=== PATIENT | male | born 1950 | race African-American/Black ===

== ENCOUNTER 2017-08-19 04:46 | Inpatient (IN) | payer MEDICARE, MEDICAID ==
[~2017-08-19] VITALS: Ht 167.6 cm; Wt 71.3 kg
[~2017-08-19 04:46] MED LIST: HALO100A IM; HALO5TAB23 PO
[2017-08-19] MEDS ORDERED: LORazepam 2 MG/ML VIAL IM ONE (05:00)
[2017-08-19] MEDS ORDERED: HALOPERIDOL LACTATE 5 MG/ML VIAL IM ONE (05:00)
[2017-08-19] MEDS ORDERED: DiphenhydrAMINE HCL 50 MG/ML VIAL IM ONE (05:00)
[2017-08-19 06:23] LABS: BASOPHILS # (AUTO) 0.04 K/uL (0.00-0.20); BASOPHILS % (AUTO) 1.1 % (0.0-2.0); EOSINOPHILS # (AUTO) 0.13 K/uL (0.00-0.70); EOSINOPHILS % (AUTO) 3.61 % (1.0-6.0); HEMATOCRIT 36.1 % (41-53); HEMOGLOBIN 12.2 g/dL (13.5-17.5); LYMPHOCYTES # (AUTO) 0.9 K/uL (1.0-4.8); LYMPHOCYTES % (AUTO) 24.8 % (22.0-44.0); MEAN CORPUSCULAR HEMOGLOBIN 31.3 pg (26.0-34.0); MEAN CORPUSCULAR HGB CONC 33.7 G/dL (31.0-37.0); MEAN CORPUSCULAR VOLUME 93 fL (80-100); MONOCYTES # (AUTO) 0.2 K/uL (0.1-1.0); MONOCYTES % (AUTO) 6.6 % (2.0-9.0); NEUTROPHILS # (AUTO) 2.3 K/uL (1.8-7.7); NEUTROPHILS % (AUTO) 63.9 % (40.0-70.0); PLATELET COUNT (AUTO) 263 K/uL (150-450); RED BLOOD CELL COUNT(AUTO) 3.89 MIL/uL (4.50-5.90); RED CELL DISTRIBUTION WIDTH 13.6 % (11.5-14.5)
[2017-08-19 06:35] LABS: ANION GAP 5 mmol/L (8-16); CALCIUM, TOTAL 8.2 mg/dL (8.8-10.5); CARBON DIOXIDE 33 mmol/L (22-29); CHLORIDE 102 mmol/L (98-107); CREATININE 0.77 mg/dL (0.60-1.30); GLOMERULAR FILTR. RATE CALC > 60 mL/min (>60); GLUCOSE,RANDOM 93 mg/dL (70-110); POTASSIUM 3.2 mmol/L (3.5-5.1); SODIUM SERUM 140 mmol/L (136-145); UREA NITROGEN, BLOOD 10 mg/dL (7-18)
[2017-08-19 06:41] LABS: ALANINE AMINOTRANSFERASE 31 U/L (12-78); ALBUMIN 3.1 g/dL (3.4-5.0); ALKALINE PHOSPHATASE 68 U/L (46-116); ASPARTATE AMINOTRANSFERASE 23 U/L (15-37); BILIRUBIN,TOTAL 0.3 mg/dL (0.1-1.0); TOTAL PROTEIN, SERUM 6.6 g/dL (6.4-8.2)
[2017-08-19 23:47] LABS: AMPHET/METH SCREEN,URINE NEGATIVE (NEGATIVE); BARBITURATE SCREEN, URINE NEGATIVE (NEGATIVE); BENZODIAZEPINES SCREEN,URINE NEGATIVE (NEGATIVE); CANNABINOID SCREEN,URINE NEGATIVE (NEGATIVE); COCAINE SCREEN,URINE NEGATIVE (NEGATIVE); METHADONE SCREEN, URINE NEGATIVE (NEGATIVE); OPIATE SCREEN,URINE NEGATIVE (NEGATIVE); PHENCYCLIDINE SCREEN,URINE NEGATIVE (NEGATIVE)
[2017-08-20 09:48] LABS: CHOL/HDL RATIO 2.2 (4.2-7.3)
[2017-08-20] MEDS ORDERED: DiphenhydrAMINE HCL 50 MG/ML VIAL ONE (16:47)
[2017-08-20] MEDS ORDERED: LORazepam 2 MG/ML VIAL ONE (16:47)
[2017-08-20] MEDS ORDERED: HALOPERIDOL LACTATE 5 MG/ML VIAL ONE (16:47)
[2017-08-20 16:55] VITALS: BP 142/102
[2017-08-20] MEDS ORDERED: LORazepam 2 MG/ML VIAL IM ONE (17:00)
[2017-08-20] MEDS ORDERED: DiphenhydrAMINE HCL 50 MG/ML VIAL IM ONE (17:00)
[2017-08-20] MEDS ORDERED: HALOPERIDOL LACTATE 5 MG/ML VIAL IM ONE (17:00)
[2017-08-20 17:25] VITALS: BP 128/78
[2017-08-20] MEDS ORDERED: PNEUMOCOCCAL VACCINE POLYVALENT 0.5 ML VIAL [PPSV23] IM ONE (18:00)
[2017-08-20] MEDS ORDERED: INFLUENZA VIRUS VACCINE QVS 2017-18 (3YR+)/PF 60 MCG/0.5 ML SYRINGE IM ONE (18:00)
[2017-08-20] MEDS ORDERED: POTASSIUM CHLORIDE 20 MEQ ER TABLET PO ONE (19:45)
[2017-08-20 20:42] VITALS: BP 142/102
[2017-08-21 06:39] VITALS: BP 128/64
[2017-08-21 08:16] VITALS: BP 132/70
[2017-08-21] MEDS: AmLODIPine BESYLATE 2.5 MG TABLET PO SCH ×2 (09:00→09:01)
[2017-08-21 09:31] LABS: ALANINE AMINOTRANSFERASE 24 U/L (12-78); ALBUMIN 2.9 g/dL (3.4-5.0); ALKALINE PHOSPHATASE 66 U/L (46-116); ANION GAP 4 mmol/L (8-16); ASPARTATE AMINOTRANSFERASE 29 U/L (15-37); BILIRUBIN,TOTAL 0.4 mg/dL (0.1-1.0); CALCIUM, TOTAL 8.3 mg/dL (8.8-10.5); CARBON DIOXIDE 32 mmol/L (22-29); CHLORIDE 102 mmol/L (98-107); CREATININE 0.83 mg/dL (0.60-1.30); GLOMERULAR FILTR. RATE CALC > 60 mL/min (>60); GLUCOSE,RANDOM 83 mg/dL (70-110); POTASSIUM 4.4 mmol/L (3.5-5.1); SODIUM SERUM 138 mmol/L (136-145); TOTAL PROTEIN, SERUM 6.1 g/dL (6.4-8.2); UREA NITROGEN, BLOOD 14 mg/dL (7-18)
[2017-08-21] MEDS: HALOPERIDOL DECANOATE 100 MG/ML VIAL IM SCH (10:45)
[2017-08-21] MEDS ORDERED: ACETAMINOPHEN 325 MG TABLET PO PRN ×2 (12:15→17:30)
[2017-08-21] MEDS ORDERED: MAGNESIUM HYDROXIDE SUSPENSION 30 ML UDCUP PO PRN (12:15)
[2017-08-21] MEDS ORDERED: LOPERAMIDE HCL 2 MG CAPSULE PO PRN (12:15)
[2017-08-21] MEDS ORDERED: PROMETHAZINE HCL 25 MG TABLET PO PRN (12:15)
[2017-08-21] MEDS ORDERED: MAG HYDROX/AL HYDROX/SIMETH ES 30 ML SUSPENSION UDCUP PO PRN (12:15)
[2017-08-21] MEDS ORDERED: HydrOXYzine PAMOATE 50 MG CAPSULE PO PRN (12:15)
[2017-08-21] MEDS ORDERED: GuaiFENesin/D-METHORPHAN [SUGAR-FREE] 200-20MG/10 ML SYRUP UDCUP PO PRN (12:15)
[2017-08-21] MEDS ORDERED: TUBERCULIN, PURIFIED PROTEIN DERIVATIVE 5 TU/0.1 ML SYG ID ONE (12:15)
[2017-08-21] MEDS: THIAMINE HCL 100 MG TABLET PO SCH (17:00)
[2017-08-21] MEDS ORDERED: IBUPROFEN 400 MG TABLET PO PRN (17:30)
[2017-08-21] MEDS: HALOPERIDOL 10 MG TABLET PO SCH (20:40)
[2017-08-22 06:34] VITALS: BP 116/60
[2017-08-22 08:13] VITALS: BP 130/85
[2017-08-22] MEDS: NALTREXONE HCL 50 MG TABLET PO SCH (08:54)
[2017-08-22] MEDS: AmLODIPine BESYLATE 2.5 MG TABLET PO SCH (08:54)
[2017-08-22] MEDS: HALOPERIDOL 10 MG TABLET PO SCH ×2 (08:54→20:13)
[2017-08-22] MEDS: FOLIC ACID 1 MG TABLET PO SCH (08:54)
[2017-08-22] MEDS: THIAMINE HCL 100 MG TABLET PO SCH ×2 (08:54→16:58)
[2017-08-22] MEDS: MULTIVITAMINS WITH MINERALS, THERAPEUTIC TABLET PO SCH (08:54)
[2017-08-22] MEDS: LORazepam 2 MG TABLET PO PRN (16:58)
[2017-08-23 06:32] VITALS: BP 137/61
[2017-08-23 08:00] VITALS: BP 124/73
[2017-08-23] MEDS: FOLIC ACID 1 MG TABLET PO SCH (10:07)
[2017-08-23] MEDS: HALOPERIDOL 10 MG TABLET PO SCH ×2 (10:08→20:28)
[2017-08-23] MEDS: AmLODIPine BESYLATE 2.5 MG TABLET PO SCH (10:08)
[2017-08-23] MEDS: MULTIVITAMINS WITH MINERALS, THERAPEUTIC TABLET PO SCH (10:08)
[2017-08-23] MEDS: THIAMINE HCL 100 MG TABLET PO SCH ×2 (10:08→17:14)
[2017-08-23] MEDS: NALTREXONE HCL 50 MG TABLET PO SCH (10:08)
[2017-08-23] MEDS: LORazepam 2 MG TABLET PO PRN (17:41)
[2017-08-23] MEDS: HALOPERIDOL 5 MG TABLET PO PRN (17:41)
[2017-08-23] MEDS: ZOLPIDEM TARTRATE 10 MG TABLET PO PRN (20:29)
[2017-08-24 06:43] VITALS: BP 126/63
[2017-08-24 08:00] VITALS: BP 120/68
[2017-08-24] MEDS: THIAMINE HCL 100 MG TABLET PO SCH ×2 (08:37→16:43)
[2017-08-24] MEDS: LORazepam 2 MG TABLET PO PRN (08:37)
[2017-08-24] MEDS: HALOPERIDOL 10 MG TABLET PO SCH ×2 (08:37→20:37)
[2017-08-24] MEDS: FOLIC ACID 1 MG TABLET PO SCH (08:37)
[2017-08-24] MEDS: MULTIVITAMINS WITH MINERALS, THERAPEUTIC TABLET PO SCH (08:37)
[2017-08-24] MEDS: NALTREXONE HCL 50 MG TABLET PO SCH (08:37)
[2017-08-24] MEDS: AmLODIPine BESYLATE 2.5 MG TABLET PO SCH (08:37)
[2017-08-24 16:34] VITALS: BP 112/71
[2017-08-25 06:14] VITALS: BP 116/67
[2017-08-25 08:14] VITALS: BP 122/70
[2017-08-25] MEDS: HALOPERIDOL 10 MG TABLET PO SCH ×2 (09:28→20:31)
[2017-08-25] MEDS: NALTREXONE HCL 50 MG TABLET PO SCH (09:28)
[2017-08-25] MEDS: THIAMINE HCL 100 MG TABLET PO SCH ×2 (09:29→17:06)
[2017-08-25] MEDS: AmLODIPine BESYLATE 2.5 MG TABLET PO SCH (09:29)
[2017-08-25] MEDS: FOLIC ACID 1 MG TABLET PO SCH (09:29)
[2017-08-25] MEDS: MULTIVITAMINS WITH MINERALS, THERAPEUTIC TABLET PO SCH (09:29)
[2017-08-25 16:00] VITALS: BP 111/65
[2017-08-25] MEDS: LORazepam 2 MG TABLET PO PRN (17:06)
[2017-08-25] MEDS: ZOLPIDEM TARTRATE 10 MG TABLET PO PRN (20:31)
[2017-08-26 06:10] VITALS: BP 119/89
[2017-08-26 08:00] VITALS: BP 91/62
[2017-08-26] MEDS: AmLODIPine BESYLATE 2.5 MG TABLET PO SCH (09:00)
[2017-08-26] MEDS: MULTIVITAMINS WITH MINERALS, THERAPEUTIC TABLET PO SCH (09:39)
[2017-08-26] MEDS: THIAMINE HCL 100 MG TABLET PO SCH ×2 (09:39→17:29)
[2017-08-26] MEDS: NALTREXONE HCL 50 MG TABLET PO SCH (09:39)
[2017-08-26] MEDS: HALOPERIDOL 10 MG TABLET PO SCH ×2 (09:39→20:52)
[2017-08-26] MEDS: FOLIC ACID 1 MG TABLET PO SCH (09:40)
[2017-08-26 10:00] VITALS: BP 121/70
[2017-08-26 16:00] VITALS: BP 109/65
[2017-08-26] MEDS: ZOLPIDEM TARTRATE 10 MG TABLET PO PRN (20:52)
[2017-08-27 08:07] VITALS: BP 107/70
[2017-08-27] MEDS: THIAMINE HCL 100 MG TABLET PO SCH ×2 (08:49→17:07)
[2017-08-27] MEDS: NALTREXONE HCL 50 MG TABLET PO SCH (08:49)
[2017-08-27] MEDS: AmLODIPine BESYLATE 2.5 MG TABLET PO SCH (08:49)
[2017-08-27] MEDS: HALOPERIDOL 10 MG TABLET PO SCH ×2 (08:50→20:30)
[2017-08-27] MEDS: MULTIVITAMINS WITH MINERALS, THERAPEUTIC TABLET PO SCH (08:50)
[2017-08-27] MEDS: FOLIC ACID 1 MG TABLET PO SCH (08:50)
[2017-08-27] MEDS: LORazepam 2 MG TABLET PO PRN (13:26)
[2017-08-27 16:00] VITALS: BP 110/67
[2017-08-28 06:06] VITALS: BP 100/70
[2017-08-28 08:00] VITALS: BP 123/65
[2017-08-28] MEDS: THIAMINE HCL 100 MG TABLET PO SCH ×2 (09:21→17:30)
[2017-08-28] MEDS: AmLODIPine BESYLATE 2.5 MG TABLET PO SCH (09:21)
[2017-08-28] MEDS: NALTREXONE HCL 50 MG TABLET PO SCH (09:21)
[2017-08-28] MEDS: MULTIVITAMINS WITH MINERALS, THERAPEUTIC TABLET PO SCH (09:21)
[2017-08-28] MEDS: FOLIC ACID 1 MG TABLET PO SCH (09:21)
[2017-08-28] MEDS: HALOPERIDOL 10 MG TABLET PO SCH ×2 (09:22→21:26)
[2017-08-28] MEDS: HALOPERIDOL DECANOATE 100 MG/ML VIAL IM SCH (14:52)
[2017-08-28 16:09] VITALS: BP 120/72
[2017-08-28] MEDS: HALOPERIDOL 5 MG TABLET PO PRN (17:30)
[2017-08-28] MEDS: LORazepam 2 MG TABLET PO PRN (17:30)
[2017-08-28] MEDS: ZOLPIDEM TARTRATE 10 MG TABLET PO PRN (21:26)
[2017-08-29 06:10] VITALS: BP 127/68
[2017-08-29 08:09] VITALS: BP 115/63
[2017-08-29] MEDS: MULTIVITAMINS WITH MINERALS, THERAPEUTIC TABLET PO SCH (10:03)
[2017-08-29] MEDS: THIAMINE HCL 100 MG TABLET PO SCH ×2 (10:03→16:39)
[2017-08-29] MEDS: FOLIC ACID 1 MG TABLET PO SCH (10:03)
[2017-08-29] MEDS: HALOPERIDOL 10 MG TABLET PO SCH ×2 (10:04→20:30)
[2017-08-29] MEDS: NALTREXONE HCL 50 MG TABLET PO SCH (10:04)
[2017-08-29] MEDS: AmLODIPine BESYLATE 2.5 MG TABLET PO SCH (10:05)
[2017-08-29 16:00] VITALS: BP 110/66
[2017-08-29] MEDS: LORazepam 2 MG TABLET PO PRN (16:39)
[2017-08-29] MEDS: ZOLPIDEM TARTRATE 10 MG TABLET PO PRN (20:30)
[2017-08-30 06:38] VITALS: BP 112/68
[2017-08-30] MEDS: AmLODIPine BESYLATE 2.5 MG TABLET PO SCH (08:11)
[2017-08-30] MEDS: THIAMINE HCL 100 MG TABLET PO SCH ×2 (08:11→17:00)
[2017-08-30] MEDS: HALOPERIDOL 10 MG TABLET PO SCH ×2 (08:11→21:01)
[2017-08-30] MEDS: MULTIVITAMINS WITH MINERALS, THERAPEUTIC TABLET PO SCH (08:11)
[2017-08-30] MEDS: FOLIC ACID 1 MG TABLET PO SCH (08:11)
[2017-08-30] MEDS: NALTREXONE HCL 50 MG TABLET PO SCH (08:11)
[2017-08-30 08:45] VITALS: BP 116/68
[2017-08-30] MEDS ORDERED: HALO100V4 IM (11:13)
[2017-08-30] MEDS ORDERED: HALO10 PO (11:13)
[2017-08-30 16:00] VITALS: BP 114/66
[2017-08-30] MEDS: LORazepam 2 MG TABLET PO PRN (17:00)
[2017-08-31 04:05] VITALS: BP 113/62
[2017-08-31] MEDS: NALTREXONE HCL 50 MG TABLET PO SCH (08:06)
[2017-08-31] MEDS: MULTIVITAMINS WITH MINERALS, THERAPEUTIC TABLET PO SCH (08:06)
[2017-08-31] MEDS: HALOPERIDOL 10 MG TABLET PO SCH (08:06)
[2017-08-31] MEDS: THIAMINE HCL 100 MG TABLET PO SCH (08:06)
[2017-08-31] MEDS: FOLIC ACID 1 MG TABLET PO SCH (08:06)
[2017-08-31] MEDS ORDERED: AMLO2.5T PO (08:13)
[2017-08-31] MEDS ORDERED: NALT50TA6 PO (08:13)
[2017-08-31 08:18] VITALS: BP 103/62
[2017-08-31] MEDS: AmLODIPine BESYLATE 2.5 MG TABLET PO SCH (08:19)
== END 2017-08-31 09:00 | disposition home or self-care (01) | DRG 750 ==
LOC: EEVIPCON 04:48 → EMS 04:48 → B3A 08-20 14:43
PROVIDERS: ADMIT Psychiatry & Neurology Child & Adolescent Psychiatry; ATTEND Psychiatry & Neurology Psychiatry
DX: F20.0 Paranoid schizophrenia (principal); I11.0 Hypertensive heart disease with heart failure; I50.9 Heart failure, unspecified; Z78.1 Physical restraint status; Z91.19 Patient's noncompliance with other medical treatment and regimen; F17.210 Nicotine dependence, cigarettes, uncomplicated; Z81.8 Family history of other mental and behavioral disorders; E87.6 Hypokalemia; D64.9 Anemia, unspecified; B18.2 Chronic viral hepatitis C; Z59.0 Homelessness; R00.0 Tachycardia, unspecified; F19.10 Other psychoactive substance abuse, uncomplicated; Z71.51 Drug abuse counseling and surveillance of drug abuser
CPT/HCPCS: 80173; 87081; 96372; 99291; G0480; J1200; J1630; J1631; J2060